=== PATIENT | female | born 1995 | race Caucasian/White ===

== ENCOUNTER 2018-10-14 11:42 | Emergency (ER) | payer OTHER, SELFPAY ==
[2018-10-14 11:47] VITALS: BP 123/60; PULSE 60; RESP 18; TEMP 36.8; O2SAT 98
--- NOTE | 2018-10-14 12:00 | DI.RAD_ITS ---
SYMPTOMS/DIAGNOSIS: LT 1-3 METACARPAL PAIN AND LATERAL WRIST PAIN LEFT HAND AND LEFT WRIST: Three views of the hand and three views of the wrist were obtained. There is a nondisplaced transverse fracture of the base of the second metacarpal. No additional fracture seen in the hand or wrist. Carpal alignment appears within normal limits.
--- NOTE | 2018-10-14 12:03 | W.ED.GENAD ---
Discharge Plan Disposition Patient Disposition: HOME Condition: Good Discharge Details Chief Complaint: Orthopedic Clinical Impression: Closed fracture of 2nd metacarpal Primary Care Provider: Deanna,Local ED Provider: Rafi Moore Discharge Instructions Instructions: Hand Fracture (ED) Additional Instructions: Please take Tylenol and ibuprofen every 6 hours as needed for pain. Please continue to use ice. Please use the wrist splint as directed. We have placed a referral to orthopedics for you, please follow-up when they do contact you. If you notice any worsening of your symptoms, or any new symptoms such as vomiting, diarrhea, fever, chills, shortness of breath, chest pain, numbness, weakness, or fainting , please return immediately to the emergency department for reevaluation. Please follow up with your primary care provider as soon as possible for reassessment and reevaluation. As always, it was a pleasure participating in your medical care today. Discharge Data Discharge Date/Time-TO BE ENTERED AT DEPARTURE: 10/14/18 13:35 Medical Decision Making This is a pleasant 26-year-old female who presents for pain in her left hand and wrist which is her nondominant hand after [place] the [employer] [place]. She has taken Advil and this is improved her symptoms. Mild to moderate swelling is present. Reproducible tenderness over the second and third metacarpals. Minimal tenderness over the lateral wrist, minimal snuffbox tenderness. No evidence of weakness or decrease in sensation. Brisk capillary refill. We will get an x-ray for evaluation of acute fracture. The patient will most likely require a splint for comfort, with continued NSAID and ice use at home. 1:23 PM Patient's x-rays has returned, there is a small fracture at the base of the second metacarpal. We will place her in a wrist splint, and get her orthopedic follow-up for her hand fracture. Recommend continued NSAIDs and ice. I have extensively reviewed the treatment plan and discharge instructions with the patient. I have addressed all patient concerns at this time. The patient was made aware of what symptoms to monitor for that would warrant a return to the emergency department. Discussed the plan with the patient, they demonstrate verbal understanding and agreement with our assessment and plan at this time. Exam(s) a RAD:XR hand LT complete a RAD:XR wrist LT complete SYMPTOMS/DIAGNOSIS: LT 1-3 METACARPAL PAIN AND LATERAL WRIST PAIN LEFT HAND AND LEFT WRIST: Three views of the hand and three views of the wrist were obtained. There is a nondisplaced transverse fracture of the base of the second metacarpal. No additional fracture seen in the hand or wrist. Carpal alignment appears within normal limits. Ordered By: Rafi Moore DO CC: [facility] General Date/Time Provider Initiated Documentation: 10/14/18 12:00. HPI Narrative: This is a 23-year-old female who is [id number] who presents today for evaluation of left hand and wrist pain. The patient was racing on the slopes yesterday, and hit her left hand and wrist on a gait. She has been taking Advil with mild improvement of her symptoms but because of the swelling and pain came in for evaluation. Pain is made worse with movement. Is over the lateral aspect of the hand over the second and third metacarpal, and does cause wrist pain with movement. She denies any associated numbness or tingling. She denies any pain in the forearm or elbow. She has no other complaints at this time. Denies any weakness. She is on no blood thinners. She denies any recent surgeries or pertinent family history or IV or illicit drug use. Related Data Allergies Allergy/AdvReac Type Severity Reaction Status Date / Time No Known Allergies Allergy Unverified 10/14/18 11:49 General Stated Complaint: Orthopedic DONNA: 4 Review of Systems Review of Systems All systems reviewed & are unremarkable except as noted in HPI and below PFSH Social History Smoking/Tobacco Use Status: Never Alcohol Intake: never Substance use type: does not use Do you feel safe at home: Yes Do you feel safe in your relationship?: Yes Exam Narrative Exam Narrative: 1.Const: Well-nourished, Well-developed, appearing stated age 2.Eyes: PERRL, no conjunctival injection, and symmetrical lids. 3.ENT: Atraumatic external nose and ears. Moist MM. Neck: Symmetric, trachea midline, No thyromegaly. 4.CVS: +S1/S2, No murmurs or gallops. Peripheral pulses 2+ and equal in all extremities. Brisk capillary refill in all extremities. 5.RESP: Unlabored respiratory effort. Clear to auscultation bilaterally. No wheezes rales or rhonchi 6.GI: Soft, Nontender/Nondistended, No hepatosplenomegaly. No guarding or rebound. 7.MSK: Normocephalic, evidence of contusion and bruising over the lateral aspect of the hand on the left, Extremities w/o deformity. No cyanosis or clubbing, Normal movement of all extremities. Left hand: Symmetrically palpable radial and ulnar pulses. Capillary refill <2 seconds to all digits. Intact sensation to light touch of the radial, median and ulnar nerves demonstrated by testing in the dorsal web space of the thumb, the distal palmar aspect of the index finger, and the lateral surface of the fifth finger. 2 point discrimination intact to 5mm (up to 6mm can be normal in digits 3-5) of discrimination in the affected digits. Intact motor function of the radial, median and ulnar nerves demonstrated by strength of extension of the isolated distal joint of the index finger, hand salt miner, and spreading of the 2nd through 5th digits. Intact recurrent median nerve as demonstrated by ability to move thumb fully through opposition, abduction and flexion. Minimal snuffbox tenderness. Pain is slightly worsened with extension and flexion of the fingers. Notable bruising, mild edema, and tenderness over the aspect of the second and third metacarpals. Mild tenderness over the lateral aspect of the wrist. Minimal snuffbox tenderness. 8.Skin: Warm, Dry. No rashes or lesions. 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 Sensation grossly intact, no focal neurologic deficits. 10.Psych: (AAO) x3. Appropriate mood and affect Course Vital Signs Temperature 36.8 C 10/14/18 11:47 Pulse 60 10/14/18 11:47 Respiratory Rate 18 10/14/18 11:47 Blood Pressure 123/60 10/14/18 11:47 Pulse Oximetry 98 10/14/18 11:47 Temperature 36.8 C 10/14/18 11:47 Temperature Source Temporal Artery Scan 10/14/18 11:47 Pulse 60 10/14/18 11:47 Respiratory Rate 18 10/14/18 11:47 Respiratory Effort Non-Labored 10/14/18 11:49 Blood Pressure 123/60 10/14/18 11:47 Blood Pressure Position Sitting 10/14/18 11:47 Pulse Oximetry 98 10/14/18 11:47 Oxygen Delivery Method Room Air 10/14/18 11:47 Oxygen Flow Rate 0 10/14/18 11:47 Pain Level 1 10/14/18 11:47
--- NOTE | 2018-10-14 12:08 | ED.GENADUL_ITS ---
Discharge Plan Disposition Patient Disposition: HOME Condition: Good Discharge Details Chief Complaint: Orthopedic Clinical Impression: Closed fracture of 2nd metacarpal Primary Care Provider: Deanna,Local ED Provider: Rafi Moore Discharge Instructions Instructions: Hand Fracture (ED) Additional Instructions: Please take Tylenol and ibuprofen every 6 hours as needed for pain. Please continue to use ice. Please use the wrist splint as directed. We have placed a referral to orthopedics for you, please follow-up when they do contact you. If you notice any worsening of your symptoms, or any new symptoms such as vomiting, diarrhea, fever, chills, shortness of breath, chest pain, numbness, weakness, or fainting , please return immediately to the emergency department for reevaluation. Please follow up with your primary care provider as soon as possible for reassessment and reevaluation. As always, it was a pleasure participating in your medical care today. Discharge Data Discharge Date/Time-TO BE ENTERED AT DEPARTURE: 10/14/18 13:35 Medical Decision Making This is a pleasant 26-year-old female who presents for pain in her left hand and wrist which is her nondominant hand after hitting it on [place] gait [place] the [employer] yesterday. She has taken Advil and this is improved her symptoms. Mild to moderate swelling is present. Reproducible tenderness over the second and third metacarpals. Minimal tenderness over the lateral wrist, minimal snuffbox tenderness. No evidence of weakness or decrease in sensation. Brisk capillary refill. We will get an x-ray for evaluation of acute fracture. The patient will most likely require a splint for comfort, with continued NSAID and ice use at home. 1:23 PM Patient's x-rays has returned, there is a small fracture at the base of the second metacarpal. We will place her in a wrist splint, and get her orthopedic follow-up for her hand fracture. Recommend continued NSAIDs and ice. I have extensively reviewed the treatment plan and discharge instructions with the patient. I have addressed all patient concerns at this time. The patient was made aware of what symptoms to monitor for that would warrant a return to the emergency department. Discussed the plan with the patient, they demonstrate verbal understanding and agreement with our assessment and plan at this time. Exam(s) a RAD:XR hand LT complete a RAD:XR wrist LT complete SYMPTOMS/DIAGNOSIS: LT 1-3 METACARPAL PAIN AND LATERAL WRIST PAIN LEFT HAND AND LEFT WRIST: Three views of the hand and three views of the wrist were obtained. There is a nondisplaced transverse fracture of the base of the second metacarpal. No additional fracture seen in the hand or wrist. Carpal alignment appears within normal limits. Ordered By: Rafi Moore DO CC: [facility] General Date/Time Provider Initiated Documentation: 10/14/18 12:00 . HPI Narrative: This is a 23-year-old female who is [id number] who presents today for evaluation of left hand and wrist pain. The patient was racing on the slopes yesterday, and hit her left hand and wrist on a gait. She has been taking Advil with mild improvement of her symptoms but because of the swelling and pain came in for evaluation. Pain is made worse with movement. Is over the lateral aspect of the hand over the second and third metacarpal, and does cause wrist pain with movement. She denies any associated numbness or tingling. She denies any pain in the forearm or elbow. She has no other complaints at this time. Denies any weakness. She is on no blood thinners. She denies any recent surgeries or pertinent family history or IV or illicit drug use. Related Data Allergies Allergy/AdvReac Type Severity Reaction Status Date / Time No Known Allergies Allergy Unverified 10/14/18 11:49 General Stated Complaint: Orthopedic DONNA: 4 Review of Systems Review of Systems All systems reviewed & are unremarkable except as noted in HPI and below PFSH Social History Smoking/Tobacco Use Status: Never Alcohol Intake: never Substance use type: does not use Do you feel safe at home: Yes Do you feel safe in your relationship?: Yes Exam Narrative Exam Narrative: 1.Const: Well-nourished, Well-developed, appearing stated age 2.Eyes: PERRL, no conjunctival injection, and symmetrical lids. 3.ENT: Atraumatic external nose and ears. Moist MM. Neck: Symmetric, trachea midline, No thyromegaly. 4.CVS: +S1/S2, No murmurs or gallops. Peripheral pulses 2+ and equal in all extremities. Brisk capillary refill in all extremities. 5.RESP: Unlabored respiratory effort. Clear to auscultation bilaterally. No wheezes rales or rhonchi 6.GI: Soft, Nontender/Nondistended, No hepatosplenomegaly. No guarding or rebound. 7.MSK: Normocephalic, evidence of contusion and bruising over the lateral aspect of the hand on the left, Extremities w/o deformity. No cyanosis or clubbing, Normal movement of all extremities. Left hand: Symmetrically palpable radial and ulnar pulses. Capillary refill <2 seconds to all digits. Intact sensation to light touch of the radial, median and ulnar nerves demonstrated by testing in the dorsal web space of the thumb, the distal palmar aspect of the index finger, and the lateral surface of the fifth finger. 2 point discrimination intact to 5mm (up to 6mm can be normal in digits 3-5) of discrimination in the affected digits. Intact motor function of the radial, median and ulnar nerves demonstrated by strength of extension of the isolated distal joint of the index finger, hand director instrumentation, and spreading of the 2nd through 5th digits. Intact recurrent median nerve as demonstrated by ability to move thumb fully through opposition, abduction and flexion. Minimal snuffbox tenderness. Pain is slightly worsened with extension and flexion of the fingers. Notable bruising, mild edema, and tenderness over the aspect of the second and third metacarpals. Mild tenderness over the lateral aspect of the wrist. Minimal snuffbox tenderness. 8.Skin: Warm, Dry. No rashes or lesions. 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 Sensation grossly intact, no focal neurologic deficits. 10.Psych: (AAO) x3. Appropriate mood and affect Course Vital Signs Temperature 36.8 C 10/14/18 11:47 Pulse 60 10/14/18 11:47 Respiratory Rate 18 10/14/18 11:47 Blood Pressure 123/60 10/14/18 11:47 Pulse Oximetry 98 10/14/18 11:47 Temperature 36.8 C 10/14/18 11:47 Temperature Source Temporal Artery Scan 10/14/18 11:47 Pulse 60 10/14/18 11:47 Respiratory Rate 18 10/14/18 11:47 Respiratory Effort Non-Labored 10/14/18 11:49 Blood Pressure 123/60 10/14/18 11:47 Blood Pressure Position Sitting 10/14/18 11:47 Pulse Oximetry 98 10/14/18 11:47 Oxygen Delivery Method Room Air 10/14/18 11:47 Oxygen Flow Rate 0 10/14/18 11:47 Pain Level 1 10/14/18 11:47
== END 2018-10-14 13:35 | disposition home or self-care (01) ==
PROVIDERS: Emergency Provider Student in an Organized Health Care Education/Training Program
DX: S62.311A Displaced fracture of base of second metacarpal bone, left hand, initial encounter for closed fracture (principal); W22.8XXA Striking against or struck by other objects, initial encounter
CPT/HCPCS: 26600; 73110; 73130; L3908